=== PATIENT | female | born 1980 | race Caucasian/White ===

== ENCOUNTER 2016-12-24 03:08 | Inpatient (IN) | payer OTHER ==
[~2016-12-24] VITALS: Ht 165.1 cm; Wt 89.5 kg
[2016-12-24] MEDS ORDERED: OXYTOCIN 30U/ 0.9% NaCL 500ML 500 ML IV ONE (03:26)
[2016-12-24] MEDS ORDERED: CALCIUM CARBONATE 500 MG TAB.CHEW PO PRN (03:30)
[2016-12-24] MEDS ORDERED: FENTANYL PF 100 MCG/2ML IV PRN (03:30)
[2016-12-24] MEDS ORDERED: ONDANSETRON 2MG/ML, 2ML IVPush PRN (03:30)
[2016-12-24] MEDS ORDERED: FENTANYL PF 100 MCG/2ML IVPush PRN (03:30)
[2016-12-24] MEDS ORDERED: TERBUTALINE 1 MG/ML, 1ML IVPush PRN (03:30)
[2016-12-24] MEDS ORDERED: NEWBORN KIT ONE (03:36)
[2016-12-24] MEDS ORDERED: OXYTOCIN 30U/ 0.9% NaCL 500ML 500 ML ONE (03:36)
[2016-12-24] MEDS: LACTATED RINGERS 1,000 ML IV SCH ×5 (03:37→22:02)
[2016-12-24] MEDS ORDERED: OXYTOCIN 30U/ 0.9% NaCL 500ML 500 ML IV PRN (03:56)
[2016-12-24] MEDS ORDERED: CLINDAMYCIN PMX 900MG/50ML 50 ML ONE ×3 (04:03→20:05)
[2016-12-24] MEDS: CLINDAMYCIN PMX 900MG/50ML 50 ML IVPB SCH ×3 (04:07→20:08)
[2016-12-24 07:31] VITALS: BP 135/81
[2016-12-24] MEDS: D5%-LACTATED RINGERS 1,000 ML IV SCH ×3 (08:23→14:41)
[2016-12-24] MEDS ORDERED: FENTANYL/BUPIV./NS/PF 250 ML EPIDCONT ONE (12:05)
[2016-12-24] MEDS ORDERED: LIDOCAINE/PF 1.5%-EPI 1:200K, 30ML ONE (12:06)
[2016-12-24] MEDS ORDERED: FENTANYL/BUPIV./NS/PF 250 ML EPIDCONT SCH (14:02)
[2016-12-24] MEDS ORDERED: METOCLOPRAMIDE 5 MG/ML, 2ML ONE (14:23)
[2016-12-24] MEDS ORDERED: SODIUM CITRATE/CITRIC ACID 30 ML UDC ONE (14:23)
[2016-12-24] MEDS ORDERED: LACTATED RINGERS 1,000 ML IVBOLUS PRN (14:30)
[2016-12-24] MEDS ORDERED: ONDANSETRON 2MG/ML, 2ML ONE (19:19)
[2016-12-25] MEDS ORDERED: LIDOCAINE 1%, 20ML ONE (00:38)
[2016-12-25] MEDS ORDERED: OXYTOCIN 30U/ 0.9% NaCL 500ML 500 ML ONE (00:39)
[2016-12-25] MEDS ORDERED: MISOPROSTOL 200 MCG TABLET ONE (00:39)
[2016-12-25] MEDS ORDERED: GENTAMICIN 450 MG in SODIUM CHLORIDE 0.9% 100 ML IV ONE (01:00)
[2016-12-25] MEDS ORDERED: FENTANYL PF 100 MCG/2ML ONE (01:17)
[2016-12-25] MEDS: OXYTOCIN 30U/ 0.9% NaCL 500ML 500 ML IV SCH ×3 (01:54→21:50)
[2016-12-25] MEDS ORDERED: RHOGAM FROM BLOOD BANK 1 NOTE EA IM/IV ONE (02:00)
[2016-12-25] MEDS ORDERED: METOCLOPRAMIDE 5 MG/ML, 2ML IV PRN (02:00)
[2016-12-25] MEDS ORDERED: MEASLES,MUMPS&RUBELLA VACC/PF 0.5 ML SQ PRN (02:00)
[2016-12-25] MEDS ORDERED: HYDROcodone/APAP 10/325 MG TABLET PO PRN (02:00)
[2016-12-25] MEDS ORDERED: METHYLERGONOVINE 0.2 MG/ML IM PRN (02:00)
[2016-12-25] MEDS ORDERED: MISOPROSTOL 200 MCG TABLET PR PRN (02:00)
[2016-12-25] MEDS ORDERED: DOCUSATE 100 MG CAPSULE PO PRN (02:00)
[2016-12-25] MEDS ORDERED: CALCIUM CARBONATE 500 MG TAB.CHEW PO PRN (02:00)
[2016-12-25] MEDS ORDERED: ONDANSETRON 2MG/ML, 2ML IV PRN (02:00)
[2016-12-25] MEDS ORDERED: BISACODYL 10 MG SUPP PR PRN (02:00)
[2016-12-25] MEDS ORDERED: ACETAMINOPHEN 325 MG TABLET PO PRN ×2 (02:00)
[2016-12-25] MEDS ORDERED: DIPH,PERTUSS(ACELL),TET VAC/PF NC IM-VACC PRN (02:00)
[2016-12-25] MEDS ORDERED: GLYCERIN ADULT SUPP PR PRN (02:00)
[2016-12-25] MEDS ORDERED: MAGNESIUM HYDROXIDE 8%, 30ML UDC PO PRN (02:00)
[2016-12-25] MEDS ORDERED: CARBOPROST TROMETHAMINE 250 MCG/ML, 1ML IM PRN (02:00)
[2016-12-25] MEDS: LACTATED RINGERS 1,000 ML IV SCH (03:26)
[2016-12-25] MEDS: D5%-LACTATED RINGERS 1,000 ML IV SCH (03:26)
[2016-12-25] MEDS ORDERED: HYDROcodone/APAP 5/325 TABLET ONE (03:36)
[2016-12-25] MEDS ORDERED: CLINDAMYCIN PMX 900MG/50ML 50 ML ONE (03:36)
[2016-12-25] MEDS ORDERED: IBUPROFEN 600 MG TABLET ONE (03:37)
[2016-12-25] MEDS: IBUPROFEN 600 MG TABLET PO PRN ×3 (03:38→18:11)
[2016-12-25] MEDS: HYDROcodone/APAP 5/325 TABLET PO PRN ×5 (03:39→20:34)
[2016-12-25] MEDS: CLINDAMYCIN PMX 900MG/50ML 50 ML IVPB SCH ×3 (03:39→21:15)
[2016-12-25 05:10] VITALS: BP 138/98
[2016-12-25] MEDS: SENNA/DOCUSATE TABLET PO PRN ×2 (08:08→20:34)
[2016-12-25] MEDS: PRENATAL VIT/IRON/FA 1 EACH TABLET PO SCH (08:08)
[2016-12-25 08:36] VITALS: BP 129/89
[2016-12-25 09:34] LABS: DIFF TOTAL CELLS COUNTED 100 CELL DIFF
[2016-12-25 09:37] LABS: HYPOCHROMIA 1+; VERIFY COUNTS? YES
[2016-12-25 11:57] VITALS: BP 125/87
[2016-12-25 16:21] VITALS: BP 127/86
[2016-12-25 19:48] VITALS: BP 136/93
[2016-12-25 23:43] VITALS: BP 136/94
[2016-12-26] MEDS: IBUPROFEN 600 MG TABLET PO PRN ×3 (01:06→12:24)
[2016-12-26] MEDS: HYDROcodone/APAP 5/325 TABLET PO PRN ×3 (01:06→10:43)
[2016-12-26] MEDS ORDERED: HYDR-3240 PO (05:30)
[2016-12-26] MEDS ORDERED: IBUP-1222 PO (05:31)
[2016-12-26] MEDS ORDERED: SENN-31 PO (05:32)
[2016-12-26 07:50] VITALS: BP_SYST 115; BP_SYST 163; BP_DIAS 113; BP_DIAS 78
[2016-12-26] MEDS: OXYTOCIN 30U/ 0.9% NaCL 500ML 500 ML IV SCH (07:50)
[2016-12-26] MEDS: PRENATAL VIT/IRON/FA 1 EACH TABLET PO SCH (08:14)
[2016-12-26] MEDS: SENNA/DOCUSATE TABLET PO PRN (08:14)
== END 2016-12-26 13:48 | disposition home or self-care (01) | DRG 774 ==
LOC: LDOP 03:08 → LDIP 03:29 → 2NW 12-25 04:51
PROVIDERS: ADMIT Obstetrics & Gynecology; ATTEND Obstetrics & Gynecology
PROC: 10E0XZZ Delivery of Products of Conception, External Approach (ICD-10-PCS; principal; 2016-12-24)
PROC: 0DQR0ZZ Repair Anal Sphincter, Open Approach (ICD-10-PCS; 2016-12-24)
PROC: 00HU33Z Insertion of Infusion Device into Spinal Canal, Percutaneous Approach (ICD-10-PCS; 2016-12-24)
PROC: 3E0R3CZ (ICD-10-PCS; 2016-12-24)
DX: O99.824 Streptococcus B carrier state complicating childbirth (principal); O72.1 Other immediate postpartum hemorrhage; O41.1230 Chorioamnionitis, third trimester, not applicable or unspecified; Z3A.40 40 weeks gestation of pregnancy; O36.63X0 Maternal care for excessive fetal growth, third trimester, not applicable or unspecified; Z37.0 Single live birth; O69.1XX0 Labor and delivery complicated by cord around neck, with compression, not applicable or unspecified; O77.0 Labor and delivery complicated by meconium in amniotic fluid; Z88.0 Allergy status to penicillin; O70.20 Third degree perineal laceration during delivery, unspecified; O66.0 Obstructed labor due to shoulder dystocia
CPT/HCPCS: 36415; 82803; 85025; 85461; 86850; 86900; J2405; J2790; J3010; J1580; J2590; J7120; J7121

== ENCOUNTER 2019-10-26 10:11 | Outpatient (CLI) | payer OTHER ==
[~2019-10-26] VITALS: Ht 162.6 cm; Wt 97.7 kg
[~2019-10-26 10:11] MED LIST: HYDR-3240 PO; IBUP-1222 PO; SENN-31 PO
[2019-11-13] MEDS ORDERED: DOCU-131 PO (10:25)
[2019-11-13] MEDS ORDERED: PREN-53 PO (10:26)
[2019-11-13] MEDS ORDERED: ACET325C6 PO (10:27)
[2019-11-13] MEDS ORDERED: SIME80TA16 PO ×2 (10:32→10:33)
== END 2019-10-26 11:29 | disposition home or self-care (01) ==
LOC: LDOP 10:11
PROVIDERS: ATTEND Obstetrics & Gynecology
DX: O26.893 Other specified pregnancy related conditions, third trimester (principal); Z3A.36 36 weeks gestation of pregnancy
CPT/HCPCS: 59025; 99201; G0463